=== PATIENT | female | born 1955 | race Caucasian/White ===

== ENCOUNTER 2017-06-22 09:31 | Outpatient (CLI) | payer OTHER ==
[2014-07-19 09:30] VITALS: BP 136/56
[2017-06-22 09:53] LABS: MEAN CORPUSCULAR HEMOGLOBIN 25.5 pg (28.0-34.0); MEAN CORPUSCULAR VOLUME 81.3 fl (80.0-100.0)
[2017-06-22 10:25] LABS: eGFR (African) > 60; eGFR (Non-African) > 60
[2017-06-22 11:00] LABS: EOSINOPHILS % 2 % (0-7); MONOCYTES % 8 % (0-11); SEGMENTED NEUTROPHILS % 50 % (39-79)
[2017-06-22 11:01] LABS: BASOPHILS % 4 % (0-2)
== END 2017-06-22 10:00 ==
LOC: LAB 09:31
PROVIDERS: ATTEND Family Medicine
DX: E78.5 Hyperlipidemia, unspecified (principal); R53.82 Chronic fatigue, unspecified
CPT/HCPCS: 36415; 80053; 80061; 85025

== ENCOUNTER 2018-06-28 10:55 | Outpatient (CLI) | payer OTHER ==
[2014-07-19 09:30] VITALS: BP 136/56
[2018-06-28 13:25] LABS: eGFR (Non-African) > 60
== END 2018-06-28 11:00 | disposition home or self-care (01) ==
LOC: LABRHC 10:55
PROVIDERS: ATTEND Family Medicine
DX: M85.9 Disorder of bone density and structure, unspecified (principal); E78.5 Hyperlipidemia, unspecified; Z00.00 Encounter for general adult medical examination without abnormal findings
CPT/HCPCS: 80053; 80061; 85027

== ENCOUNTER 2018-07-25 07:37 | Outpatient (CLI) | payer OTHER ==
[2014-07-19 09:30] VITALS: BP 136/56
--- NOTE | 2018-07-25 12:36 | Diagnostic Imaging Report ---
BELINDA HICKS [facility] [address] [id number] Report Submission Date: Jul 25, 2018 10:50:05 AM MANAGER INFUSION Patient Study Name: RAEANN DE LEÓN Date: Jul 25, 2018 12:00:00 AM MANAGER INFUSION Modality Type: DEXA\OT Gender: F Description: DEXA : 57 Institution: [facility] Physician: BELINDA HICKS Examination: Bone density History: Assess bone mineralization Comparison exams: None available Technique: DEXA protocol Findings: Average bone mineral density from L1 through L4: 1.054 grams cm2. T score: -1.1 Average bone mineral density of the left femoral neck: 0.857 grams cm2. T score: -1.2 Average bone mineral density of the right femoral neck: 0.881 grams cm2. T score: -1.0 Impression: Lumbar spine and bilateral hip osteopenia. Electronically signed on Jul 25, 2018 10:50:05 AM BING by: Tarun AGUERO
== END 2018-07-25 07:40 ==
LOC: RAD 07:37
PROVIDERS: ATTEND Family Medicine
DX: Z00.00 Encounter for general adult medical examination without abnormal findings (principal); M85.89 Other specified disorders of bone density and structure, multiple sites
CPT/HCPCS: 77080